=== PATIENT | male | born 1990 | race Caucasian/White ===

== ENCOUNTER 2016-09-17 12:04 | Emergency (ER) | payer SELFPAY ==
[2016-09-17 12:19] VITALS: BP 122/78
--- NOTE | 2016-09-17 13:25 | Emergency Department Report ---
Entered by DANIEL STEPHEN, acting as scribe for ALLI DUKE NP. Chief Complaint: Abdominal Pain Stated Complaint: ABD PAIN Time Seen by Provider: 09/17/16 12:48 - HPI History of Present Illness: 26 y/o male presents c/o abd pain that started 10am this morning. Pt was sent from [facility] for acute abdominal high glucose. Sx include N/V but pt denies burning during urination, fever and states trouble with urination, penile discharge. Pt notes no Hx of Sx previously. NAD VSS no focal or neuro deficit ambulatory see note on chart no pmh no psh mom dad a/w no meds no cig/etoh/drug llq pain worse w movement fever reported sent by pcp - ROS Review of Systems: as noted in HPI - Exam Vital Signs: Vital Signs 09/17/16 12:16 Temperature 98.1 F Pulse Rate 73 Respiratory 18 Rate Blood Pressure 122/78 O2 Sat by Pulse 98 Oximetry Physical Exam: as noted in HPI MSE screening note: Focused history and physical exam performed. Due to findings the following was ordered: ED Disposition for MSE Condition: Stable This documentation as recorded by the scribe,DANIEL STEPHEN,accurately reflects the service I personally performed and the decisions made by me,ALLI DUKE NP.
[2016-09-17 13:46] LABS: Basophils % (Auto) 0.2 % (0.0-1.8); Eosinophils % (Auto) 0.4 % (0.0-4.3); Hematocrit 49.9 % (35.5-45.6); Hemoglobin 16.5 gm/dl (11.8-15.2); Mean Corpuscular HGB Conc 33 % (32-34); Mean Corpuscular Hemoglobin 30 pg (28-32); Mean Corpuscular Volume 89 fl (84-94); Platelet Count 198 K/mm3 (140-440); Red Blood Count 5.59 M/mm3 (3.65-5.03); Red Cell Distribution Width 13.4 % (13.2-15.2); White Blood Count 11.9 K/mm3 (4.5-11.0)
[2016-09-17 13:59] LABS: Alanine Aminotransferase 16 units/L (7-56); Albumin 4.5 g/dL (3.9-5); Albumin/Globulin Ratio 1.6 %; Alkaline Phosphatase 99 units/L (35-129); Anion Gap 18 mmol/L; BUN/Creatinine Ratio 18.57; Bilirubin,Total 0.3 mg/dL (0.1-1.2); Blood Urea Nitrogen 13 mg/dL (9-20); Calcium 9.4 mg/dL (8.4-10.2); Carbon Dioxide 27 mmol/L (22-30); Chloride 97.6 mmol/L (98-107); Glucose 227 mg/dL (75-100); Lipase 21 units/L (13-60); Potassium 4.2 mmol/L (3.6-5.0); Sodium 138 mmol/L (137-145); Total Protein 7.4 g/dL (6.3-8.2)
== END 2016-09-17 22:35 | disposition left against medical advice (07) ==
LOC: ED 12:04
DX: R10.9 Unspecified abdominal pain (principal); Z53.21 Procedure and treatment not carried out due to patient leaving prior to being seen by health care provider
CPT/HCPCS: 36415; 80053; 82962; 83690; 85025